=== PATIENT | female | born 1990 | race Caucasian/White ===

== ENCOUNTER 2022-04-21 08:56 | Emergency (ER) | payer OTHER, SELFPAY ==
[2022-04-21 09:10] VITALS: BP 127/79; PULSE 88; RESP 24; O2SAT 100; BMI 25.6
[2022-04-21 09:24] VITALS: BP 118/76; PULSE 83; RESP 24; TEMP 36.4; O2SAT 100
[2022-04-21 09:30] VITALS: BP 118/75; PULSE 88; O2SAT 100
--- NOTE | 2022-04-21 13:26 | ED.GENADULT ---
HPI - General Adult General Date Seen: 04/21/22 Chief complaint: Cough Stated complaint: Covid+, short of breath Time Seen by Provider: 04/21/22 09:19 Source: patient History of Present Illness HPI narrative: Patient is a 31-year-old woman who has been sick for 4 days with cough, sore throat, body aches, fatigue. She tested positive for COVID yesterday. She did have a fever initially although that is resolved. She has pain on both sides of her rib cage when she coughs. She does not have pleuritic chest pain. She is not short of breath. She want to just make sure that everything was okay since she has a pretty bad cough. She also wondered about Paxlovid. No lower extremity swelling or pain. No history of blood clots for her or family. No oral contraceptives. She does not smoke. Related Data Previous Rx's Medication Instructions Recorded benzonatate 200 mg capsule 200 mg PO TID #15 cap 04/21/22 Allergies Allergy/AdvReac Type Severity Reaction Status Date / Time codeine Allergy Verified 04/21/22 09:10 Review of Systems Status of ROS: Reports: 10 or more systems reviewed and unremarkable except as noted in History and below [facility] Medical History No significant past medical history Surgical History No significant past surgical history Social History Smoking Status: Never smoker Do you use any of these nicotine containing products: None Second hand tobacco smoke exposure: No How often do you have a drink containing alcohol: 2-3 times a week How many standard drinks containing alcohol do you have on a typical day: 1 or 2 AUDIT-C Alcohol total score: 3 Non-prescribed substance use: over the counter (eg: immodium) Non-prescribed substance use details: ibuprofen and tylenol service: No Exam Narrative: Exam Narrative: Vital signs as noted below. In general, an alert, nontoxic woman. Coughs frequently. Head: Normocephalic, atraumatic. Eyes: Pupils are equal reactive. Extraocular movements are full. Conjunctivae are normal. ENT: Mucous membranes are moist. Throat is normal. Neck: Supple without lymphadenopathy. Heart: Regular rate and rhythm. No murmur or rub. Lungs: Clear bilaterally. No increased work of breathing, crackles or wheezes. Abdomen: Soft and nontender. No organomegaly. Extremities: Well perfused. No edema. No calf tenderness. Pulses intact. Neurologic: Patient is alert and oriented to person and place. Speech is fluent. Face is symmetric. Moves all extremities equally. Affect: Normal. Skin: Warm and dry. Well perfused. Const: Vital Signs, click to edit/add: Vital Signs - 24 hr 04/21/22 09:10 04/21/22 09:24 Temperature 97.6 F Pulse Rate [Femora l] 88 83 Respiratory Rate 24 24 Blood Pressure [Ri ght Upper Arm] 127/79 118/76 Pulse Oximetry 100 100 Course Course Hospital Course: Overall, patient appears well. O2 sats 100%, breathing easily. No tachypnea or tachycardia. Lungs are clear. Discussed with her with O2 sats normal, fever resolve and lungs clear, my suspicion for pneumonia, COVID or otherwise is relatively low. We did discuss using some Robitussin with codeine for cough but she says that codeine upsets her stomach. Will try some Tessalon Perles to see if that helps with her cough at all. She has some pain in her ribcage when she coughs, does not have any pleuritic pain, shortness of breath, hypoxia, tachycardia, or other findings to suggest pulmonary embolism. My suspicion is low. For now, I have recommended use of ibuprofen or Tylenol, she had been taking those for fever but when the fever. She discontinued use of any medications for pain. If she has worsening symptoms, develops shortness of breath, recurrent fever etcetera, return for re-evaluation. Otherwise discussed that she will likely feel better over the next 1-2 weeks. Continue with hydration, rest, as needed. Vital Signs Vital signs: Initial Vital Signs Temperature Source Temporal Artery Scan 04/21/22 09:10 Pulse Rate 88 04/21/22 09:10 Pulse Rhythm 04/21/22 09:10 Respiratory Rate 24 04/21/22 09:10 Blood Pressure 127/79 04/21/22 09:10 Blood Pressure Mean 95 04/21/22 09:10 Pulse Oximetry 100 04/21/22 09:10 Oxygen Delivery Method 04/21/22 09:10 Vital Signs Pulse Rate 88 04/21/22 09:10 Respiratory Rate 24 04/21/22 09:10 Blood Pressure 127/79 04/21/22 09:10 Pulse Oximetry 100 04/21/22 09:10 Temperature 97.6 F 04/21/22 09:24 Pulse Rate 83 04/21/22 09:24 Respiratory Rate 24 04/21/22 09:24 Blood Pressure 118/76 04/21/22 09:24 Pulse Oximetry 100 04/21/22 09:24 Discharge Plan Discharge Clinical Impression: COVID-19 Patient Disposition: Home, Self-Care Condition: Stable Instructions: COVID-19 (Coronavirus Disease 2019) (ED) Additional Instructions: Ibuprofen 3 times daily as needed. Fluids, rest. Return for worsening shortness of breath, fever, oxygen levels below 90%. Anticipate gradual improvement over the next 1-2 weeks. Prescriptions: New benzonatate 200 mg capsule 200 mg PO TID Qty: 15 0RF Stand Alone Forms: [facility]
[2022-04-21 14:00] VITALS: BP 118/83; PULSE 87; RESP 20; O2SAT 99
== END 2022-04-21 10:05 | disposition home or self-care (01) ==
PROVIDERS: Emergency Provider Emergency Medicine
DX: U07.1 COVID-19 (principal)
CPT/HCPCS: 99282; 99283; 99284

== ENCOUNTER 2022-09-30 09:53 | Emergency (ER) | payer OTHER, SELFPAY ==
[2022-09-30 10:33] VITALS: BP 110/73; PULSE 90; RESP 16; TEMP 36.6; O2SAT 98; BMI 26.9
[2022-09-30 11:45] LABS: Mono Screen* Negative (Negative)
[2022-09-30 12:12] LABS: PCR FLU A Negative PCR FLU A (Negative); PCR FLU B Negative PCR FLU B (Negative); PCR RSV Negative PCR RSV (Negative)
[2022-09-30 12:26] LABS: SARS PCR* Negative SARS-CoV-2 (Negative); Strep A DNA Probe* DETECTED (Not Detectd)
--- NOTE | 2022-09-30 12:38 | ED.GENADULT ---
HPI - General Adult General Chief complaint: Sore Throat Stated complaint: Sore throat, ear ache Time Seen by Provider: 09/30/22 12:29 Source: patient Mode of arrival: ambulatory Limitations: no limitations History of Present Illness HPI narrative: 32-year-old female coming in today complaining of feeling well for couple weeks. She was having congestion and cough which cleared up and then she developed a sore throat about 2 days ago. She denies any fevers or chills. She feels fatigued. She has a slightly decreased appetite. She also has been vomiting however she is 7 weeks so she is unsure if the vomiting is coming from the illness or the . She has diarrhea on and off. No abdominal discomfort or chest pain. No urinary symptoms. Related Data Previous Rx's Medication Instructions Recorded amoxicillin 500 mg tablet 500 mg PO BID 10 days #20 tabs 09/30/22 ondansetron HCl 4 mg tablet 4 mg PO TID PRN nausea and 09/30/22 vomiting #20 tabs Allergies Allergy/AdvReac Type Severity Reaction Status Date / Time codeine Allergy Verified 09/30/22 10:37 Review of Systems Status of ROS: Reports: 10 or more systems reviewed and unremarkable except as noted in History and below [facility] Medical History No significant past medical history Surgical History No significant past surgical history Social History Smoking Status: Never smoker Do you use any of these nicotine containing products: None Second hand tobacco smoke exposure: No How often do you have a drink containing alcohol: 2-3 times a week How many standard drinks containing alcohol do you have on a typical day: 1 or 2 How often do you have six or more drinks on one occasion: Never AUDIT-C Alcohol total score: 3 Non-prescribed substance use: over the counter (eg: immodium) Non-prescribed substance use details: ibuprofen and tylenol service: No Exam Narrative: Exam Narrative: Well-nourished well-developed patient in no acute distress. Alert and oriented. Answers questions appropriately. Mood and affect are appropriate. Thoughts are goal oriented and rational. No tangential or magical thinking noted. Patient speaks in full sentences without needing to catch her breath. HEENT: Normocephalic atraumatic. Pupils are equally round reactive to light. Extraocular muscles are intact. Conjunctivae are moist without any icterus noted. Moist mucous membranes. Posterior pharynx is normal aside from a bifurcated uvula. Neck is soft without any lymphadenopathy or thyromegaly. No masses are appreciated. Cardiovascular: Heart is regular rate and rhythm S1 and S2 are present without any murmurs. Lungs: Clear to auscultation bilaterally no wheezes rhonchi or rales are appreciated. Patient takes deep breaths without any discomfort. Abdomen: Soft and nontender nondistended with normal bowel sounds. Extremities: Bilateral lower extremities are without edema. Skin: Well perfused without any obvious rashes. Const: Vital Signs, click to edit/add: Vital Signs - 24 hr 09/30/22 10:33 09/30/22 12:41 Temperature 97.9 F 97.8 F Pulse Rate [Right Pulse Oximeter] 90 83 Respiratory Rate 16 20 Blood Pressure [Ri ght Upper Arm] 110/73 116/71 Pulse Oximetry 98 100 Oxygen Delivery Me thod Room Air Room Air Course Course Hospital Course: [place], COVID, influenza negative. Strep positive. Vital Signs Vital signs: Initial Vital Signs Temperature 97.9 F 09/30/22 10:33 Temperature Source Temporal Artery Scan 09/30/22 10:33 Pulse Rate 90 09/30/22 10:33 Pulse Rhythm 09/30/22 10:33 Respiratory Rate 16 09/30/22 10:33 Blood Pressure 110/73 09/30/22 10:33 Blood Pressure Mean 85 09/30/22 10:33 Blood Pressure Position Sitting 09/30/22 10:33 Pulse Oximetry 98 09/30/22 10:33 Oxygen Delivery Method 09/30/22 10:33 Vital Signs Temperature 97.9 F 09/30/22 10:33 Pulse Rate 90 09/30/22 10:33 Respiratory Rate 16 09/30/22 10:33 Blood Pressure 110/73 09/30/22 10:33 Pulse Oximetry 98 09/30/22 10:33 Oxygen Delivery Method 09/30/22 10:33 Temperature 97.8 F 09/30/22 12:41 Pulse Rate 83 09/30/22 12:41 Respiratory Rate 20 09/30/22 12:41 Blood Pressure 116/71 09/30/22 12:41 Pulse Oximetry 100 09/30/22 12:41 Oxygen Delivery Method 09/30/22 12:41 Medical Decision Making MDM Narrative Medical decision making narrative: 32-year-old female 7 weeks with strep pharyngitis. Will treat with amoxicillin. We also give her a prescription for Zofran. Follow up as needed. Lab Data Lab results reviewed: Yes I reviewed the patient's lab results Labs: Lab Results 09/30/22 09/30/22 09/30/22 Range/Units 11:20 11:20 11:28 SARS-CoV-2 (PCR) Negative SARS-CoV-2 (Negative) Monoscreen Negative (Negative) Influenza Type A (PCR) Negative PCR FLU A (Negative) Influenza Type B (PCR) Negative PCR FLU B (Negative) RSV (PCR) Negative PCR RSV (Negative) Group A Strep DNA DETECTED A (Not Detectd) Discharge Plan Discharge Clinical Impression: Acute streptococcal pharyngitis, Vomiting Patient Disposition: Home, Self-Care Condition: Stable Additional Instructions: Take all antibiotic as prescribed. Okay to use Tylenol as needed for sore throat or discomfort. Follow-up with your OBGYN as scheduled. Prescriptions: New amoxicillin 500 mg tablet 500 mg PO BID 10 Days Qty: 20 0RF ondansetron HCl 4 mg tablet 4 mg PO TID PRN (Reason: nausea and vomiting) Qty: 20 0RF Follow Up/Referrals: Provider,Not a Local [Primary Care Provider] - Stand Alone Forms: [facility] Info Instructions
[2022-09-30 12:41] VITALS: BP 116/71; PULSE 83; RESP 20; TEMP 36.6; O2SAT 100
== END 2022-09-30 12:55 | disposition home or self-care (01) ==
LOC: ED 12:48
PROVIDERS: Emergency Provider Family Medicine
DX: J02.0 Streptococcal pharyngitis (principal)
CPT/HCPCS: 36415; 86308; 87502; 87634; 87635; 87651; 99283; 99284